=== PATIENT | female | born 1970 | race Caucasian/White ===

== ENCOUNTER 2019-02-26 13:40 | Emergency (ER) | payer MEDICARE, OTHER ==
[~2019-02-26] VITALS: Ht 162.6 cm; Wt 54.9 kg
--- NOTE | 2019-02-26 14:31 | NUR ---
Christiano CASTELLANOS PA AT BEDSIDE TO EVAL PT, PT C/O RT FLANKPAIN SINCE 199, HAS BEEN ON MACROBID FOR 3 WEEKS, FINISHED YESTERDAY, +N/V, VOMITED X2 TODAY, "LOW GRADE FEVER", PT IS RESTING QUIETLY ON GURNEY,
[2019-02-26] MEDS ORDERED: CefTRIAXone 2gm/D5W 50ml 50 ML IV ONE (14:35)
[2019-02-26] MEDS ORDERED: normal saline 1000ML IV soln IV ONE (14:35)
[2019-02-26] MEDS ORDERED: ondansetron/PF 4mg/2ml inj IV ONE ×2 (14:35→16:40)
[2019-02-26 14:42] LABS: BASOPHILS # (AUTO) 0.1 X10'3 (0-0.2); BASOPHILS % (AUTO) 0.5 % (0-1); EOSINOPHILS % (AUTO) 0.2 % (0-6); HEMATOCRIT 40.7 % (35.0-45.0); HEMOGLOBIN 13.7 g/dl (12.0-16.0); LYMPHOCYTES # (AUTO) 1.5 X10'3 (1.1-4.8); LYMPHOCYTES % (AUTO) 12.9 % (21-51); MEAN CORPUSCULAR HEMOGLOBIN 31.2 PG (27.0-31.0); MEAN CORPUSCULAR HGB CONC 33.7 g/dL (33.0-36.5); MEAN CORPUSCULAR VOLUME 92.5 FL (78-98); MEAN PLATELET VOLUME 7.7 FL (7.4-10.4); MONOCYTES # (AUTO) 0.5 X10'3 (0-0.9); MONOCYTES % (AUTO) 4.5 % (2-12); NEUTROPHILS # (AUTO) 9.6 X10'3 (1.8-7.7); NEUTROPHILS % (AUTO) 81.9 % (42-75); PLATELET COUNT 339 X10'3 (140-440); RED CELL DISTRIBUTION WIDTH 13.1 % (11.5-14.5); WHITE BLOOD COUNT 11.7 X10'3 (4.5-11.0)
--- NOTE | 2019-02-26 14:47 | NUR ---
lab at bedside for blood cx
[2019-02-26 14:52] LABS: ALANINE AMINOTRANSFERASE 15 U/L (12-78); ALBUMIN 3.9 G/DL (3.4-5.0); ALKALINE PHOSPHATASE 93 IU/L (46-116); ANION GAP 11 (8-16); ASPARTATE AMINO TRANSFERASE 15 U/L (10-37); BILIRUBIN,TOTAL 0.4 MG/DL (0.1-1.0); BLOOD UREA NITROGEN 18 MG/DL (7-18); BUN/CREATININE RATIO 12.5 (6.6-38.0); CALCIUM 9.4 MG/DL (8.5-10.1); CHLORIDE 103 MMOL/L (99-107); CREATININE 1.44 MG/DL (0.40-0.90); GLUCOSE 130 MG/DL (70-104); POTASSIUM 3.8 MMOL/L (3.5-5.1); SODIUM 139 MMOL/L (135-145); TOTAL CARBON DIOXIDE 25.1 MMOL/L (24-32); eGFR 39 ML/MIN
[2019-02-26 14:55] LABS: CLARITY,URINE CLEAR (Clear); COLOR,URINE YELLOW (Yellow); GLUCOSE, URINE NEGATIVE (Neg); KETONES,URINE NEGATIVE (Neg); LEUKOCYTE ESTERASE ,URINE NEGATIVE (Neg); NITRITES, URINE NEGATIVE (Neg); OCCULT BLOOD,URINE MODERATE (Neg); PH,URINE 7.5 (4.8-8.0); PROTEIN,URINE NEGATIVE (Neg); UROBILINOGEN,URINE 0.2 E.U/dL (0.2-1.0)
[2019-02-26] MEDS: morphine 4 MG/ML inj SYRINge IV PRN ×2 (14:57→16:41)
[2019-02-26 14:59] LABS: UA COLLECTION TYPE CLN CATCH MIDSTREAM
--- NOTE | 2019-02-26 15:01 | NUR ---
1ST LITER NS INFUSING W/O
[2019-02-26 15:08] LABS: AMORPHOUS PHOSPHATES 1+
[2019-02-26 15:09] LABS: BACTERIA,URINE FEW /HPF (Neg)
[2019-02-26 15:10] LABS: SQUAMOUS EPITHELIAL CELL,UR FEW /LPF (FEW)
[2019-02-26 15:15] LABS: WBC,URINE 0-4 /HPF (0-4)
[2019-02-26] MEDS ORDERED: ONDA4TAB6 PO (15:49)
[2019-02-26] MEDS ORDERED: HYDR-4383 PO (15:49)
[2019-02-26] MEDS ORDERED: NAPR-56 PO (15:49)
[2019-02-26 17:24] VITALS: BP 175/94
== END 2019-02-26 17:25 | disposition home or self-care (01) ==
LOC: ER 13:41
DX: R10.31 Right lower quadrant pain (principal); R10.11 Right upper quadrant pain; R31.9 Hematuria, unspecified; G35 Multiple sclerosis; E03.9 Hypothyroidism, unspecified; M79.7 Fibromyalgia; Z98.890 Other specified postprocedural states; Z88.5 Allergy status to narcotic agent; Z88.8 Allergy status to other drugs, medicaments and biological substances; Z79.899 Other long term (current) drug therapy
CPT/HCPCS: 36415; 74176; 80053; 81001; 83605; 84145; 85025; 87040; 96365; 96366; 96375; 99284; J0696; J2270; J2405; J7030

== ENCOUNTER 2019-06-04 12:53 | Inpatient (IN) | payer MEDICARE, MEDICAID ==
[~2019-06-04] VITALS: Ht 162.6 cm; Wt 53.0 kg
[~2019-06-04 12:53] MED LIST: HYDR-4383 PO; ONDA4TAB6 PO
[2019-06-04 13:55] LABS: CLARITY,URINE CLOUDY (Clear); COLOR,URINE YELLOW (Yellow); GLUCOSE, URINE NEGATIVE (Neg); KETONES,URINE NEGATIVE (Neg); LEUKOCYTE ESTERASE ,URINE TRACE (Neg); NITRITES, URINE POSITIVE (Neg); OCCULT BLOOD,URINE LARGE (Neg); PH,URINE 7.5 (4.8-8.0); PROTEIN,URINE NEGATIVE (Neg); UROBILINOGEN,URINE 0.2 E.U/dL (0.2-1.0)
[2019-06-04 13:59] LABS: UA COLLECTION TYPE CLN CATCH MIDSTREAM
[2019-06-04 14:03] LABS: BACTERIA,URINE FEW /HPF (Neg)
[2019-06-04 14:04] LABS: AMORPHOUS PHOSPHATES 3+; MUCUS STRANDS NONE SEEN /LPF (Neg); SQUAMOUS EPITHELIAL CELL,UR FEW /LPF (FEW)
[2019-06-04 14:04] LABS: BASOPHILS # (AUTO) 0.1 X10'3 (0-0.2); BASOPHILS % (AUTO) 0.4 % (0-1); EOSINOPHILS % (AUTO) 0.1 % (0-6); HEMATOCRIT 40.8 % (35.0-45.0); HEMOGLOBIN 13.9 g/dl (12.0-16.0); LYMPHOCYTES # (AUTO) 1.2 X10'3 (1.1-4.8); LYMPHOCYTES % (AUTO) 9.2 % (21-51); MEAN CORPUSCULAR HEMOGLOBIN 31.2 PG (27.0-31.0); MEAN CORPUSCULAR HGB CONC 34.2 g/dL (33.0-36.5); MEAN CORPUSCULAR VOLUME 91.3 FL (78-98); MEAN PLATELET VOLUME 7.6 FL (7.4-10.4); MONOCYTES # (AUTO) 0.5 X10'3 (0-0.9); MONOCYTES % (AUTO) 3.5 % (2-12); NEUTROPHILS # (AUTO) 11.4 X10'3 (1.8-7.7); NEUTROPHILS % (AUTO) 86.8 % (42-75); PLATELET COUNT 395 X10'3 (140-440); RED BLOOD COUNT 4.47 X10'6 (4.20-5.60); RED CELL DISTRIBUTION WIDTH 12.4 % (11.5-14.5); WHITE BLOOD COUNT 13.2 X10'3 (4.5-11.0)
[2019-06-04 14:15] LABS: ALANINE AMINOTRANSFERASE 16 U/L (12-78); ALBUMIN 4.2 G/DL (3.4-5.0); ALKALINE PHOSPHATASE 98 IU/L (46-116); AMYLASE 209 U/L (25-115); ANION GAP 10 (8-16); ASPARTATE AMINO TRANSFERASE 12 U/L (10-37); BILIRUBIN,TOTAL 0.3 MG/DL (0.1-1.0); BLOOD UREA NITROGEN 15 MG/DL (7-18); BUN/CREATININE RATIO 10.4 (6.6-38.0); CALCIUM 9.1 MG/DL (8.5-10.1); CHLORIDE 101 MMOL/L (99-107); CREATININE 1.44 MG/DL (0.40-0.90); GLUCOSE 115 MG/DL (70-104); LIPASE 997 U/L (73-393); POTASSIUM 3.9 MMOL/L (3.5-5.1); SODIUM 138 MMOL/L (135-145); TOTAL CARBON DIOXIDE 27.5 MMOL/L (24-32); TOTAL PROTEIN 8.4 G/DL (6.4-8.2); eGFR 39 ML/MIN
[2019-06-04] MEDS ORDERED: ondansetron/PF 4mg/2ml inj IV ONE (15:00)
[2019-06-04] MEDS ORDERED: pantoprazole 40 MG vial IV ONE (15:00)
[2019-06-04] MEDS ORDERED: normal saline 1000ML IV soln IVB ONE ×2 (15:00)
[2019-06-04] MEDS: morphine 2 MG/ML inj. syringe IV PRN ×2 (16:14→17:12)
[2019-06-04] MEDS ORDERED: LEVO100T9 PO (16:53)
[2019-06-04] MEDS ORDERED: NAPR-996 PO (16:55)
[2019-06-04] MEDS ORDERED: ACET-75 PO (16:55)
[2019-06-04] MEDS ORDERED: ondansetron/PF 4mg/2ml inj IV PRN (17:55)
[2019-06-04] MEDS ORDERED: magnesium 4gm in 100ml NS 100 ML IV PRN (17:55)
[2019-06-04] MEDS ORDERED: mag hydrox/Alum hydrox/simeth 30ml oral suspension PO PRN (17:55)
[2019-06-04] MEDS ORDERED: magnesium 2GM in 50ml NS 50 ML IV PRN (17:55)
[2019-06-04] MEDS ORDERED: acetaminophen 325mg tablet PO PRN (17:55)
[2019-06-04] MEDS ORDERED: magnesium Cl slow-release 64mg tablet PO PRN (17:55)
[2019-06-04] MEDS ORDERED: potassium CL 10mEq/100ml bag 100 ML IV PRN ×2 (17:55)
[2019-06-04] MEDS ORDERED: potassium Cl 20 mEq SR tablet PO PRN ×2 (17:55)
[2019-06-04] MEDS ORDERED: magnesium hydroxide 30ml (MOM) UD suspension PO PRN (17:55)
[2019-06-04] MEDS: normal saline 1000ml 1,000 ML IV SCH ×2 (19:08→22:54)
[2019-06-04] MEDS: K and/or MAG REPLACEMENT MC SCH (20:00)
[2019-06-04 20:30] VITALS: BP 153/91
[2019-06-04] MEDS: dronabinol 2.5mg capsule PO PRN (21:53)
[2019-06-04] MEDS: piperacillin/tazo 3.375gm/50ml 50 ML IV SCH (23:58)
[2019-06-05] VITALS: BP 150/89
[2019-06-05] MEDS: heparin, porcine 5000 units/ml vial SQ SCH ×2 (00:01→07:30)
[2019-06-05] MEDS: normal saline 1000ml 1,000 ML IV SCH ×2 (00:25→06:06)
[2019-06-05] MEDS ORDERED: morphine 2 MG/ML inj. syringe IV ONE (01:45)
[2019-06-05] MEDS: dronabinol 2.5mg capsule PO PRN ×2 (04:02→10:30)
[2019-06-05 05:18] LABS: BASOPHILS % (AUTO) 0.4 % (0-1); EOSINOPHILS % (AUTO) 0.4 % (0-6); HEMATOCRIT 34.5 % (35.0-45.0); HEMOGLOBIN 11.8 g/dl (12.0-16.0); LYMPHOCYTES # (AUTO) 1.9 X10'3 (1.1-4.8); LYMPHOCYTES % (AUTO) 20.1 % (21-51); MEAN CORPUSCULAR HEMOGLOBIN 31.4 PG (27.0-31.0); MEAN CORPUSCULAR HGB CONC 34.3 g/dL (33.0-36.5); MEAN CORPUSCULAR VOLUME 91.6 FL (78-98); MEAN PLATELET VOLUME 7.8 FL (7.4-10.4); MONOCYTES # (AUTO) 0.7 X10'3 (0-0.9); MONOCYTES % (AUTO) 7.8 % (2-12); NEUTROPHILS # (AUTO) 6.8 X10'3 (1.8-7.7); NEUTROPHILS % (AUTO) 71.3 % (42-75); PLATELET COUNT 282 X10'3 (140-440); RED BLOOD COUNT 3.77 X10'6 (4.20-5.60); RED CELL DISTRIBUTION WIDTH 12.4 % (11.5-14.5); WHITE BLOOD COUNT 9.5 X10'3 (4.5-11.0)
[2019-06-05 05:43] LABS: ALANINE AMINOTRANSFERASE 13 U/L (12-78); ALBUMIN 3.4 G/DL (3.4-5.0); ALKALINE PHOSPHATASE 76 IU/L (46-116); ANION GAP 13 (8-16); ASPARTATE AMINO TRANSFERASE 12 U/L (10-37); BILIRUBIN,TOTAL 0.4 MG/DL (0.1-1.0); BLOOD UREA NITROGEN 11 MG/DL (7-18); BUN/CREATININE RATIO 7.7 (6.6-38.0); CALCIUM 8.1 MG/DL (8.5-10.1); CHLORIDE 105 MMOL/L (99-107); CHOL/HDL RATIO 4.3 (0.00-4.99); CHOLESTEROL 162 MG/DL (0-200); CREATININE 1.43 MG/DL (0.40-0.90); GLUCOSE 106 MG/DL (70-104); HDL CHOLESTEROL 38 MG/DL (35-60); LDL CHOLESTEROL 105 MG/DL (50-100); LIPASE 154 U/L (73-393); MAGNESIUM 1.7 MG/DL (1.5-2.4); POTASSIUM 3.7 MMOL/L (3.5-5.1); SODIUM 139 MMOL/L (135-145); TOTAL CARBON DIOXIDE 21.2 MMOL/L (24-32); TOTAL PROTEIN 6.8 G/DL (6.4-8.2); TRIGLYCERIDES 127 MG/DL (20-135); eGFR 39 ML/MIN
--- NOTE | 2019-06-05 07:14 | NUR ---
Patient in room [facility]. I have received report from TIGRE Murphy and had the opportunity to ask questions and assume patient care.
[2019-06-05] MEDS: piperacillin/tazo 3.375gm/50ml 50 ML IV SCH (07:30)
[2019-06-05 08:00] VITALS: BP 152/84
[2019-06-05] MEDS ORDERED: levoTHYROXINE 100mcg tablet PO SCH (08:00)
[2019-06-05] MEDS: K and/or MAG REPLACEMENT MC SCH (08:00)
[2019-06-05] MEDS ORDERED: AMOX-580 PO (10:07)
[2019-06-05] MEDS ORDERED: ONDA4TAB6 PO (10:23)
[2019-06-05 11:00] VITALS: BP 158/87
--- NOTE | 2019-06-05 12:03 | NUR ---
pt. discharged from facility at 1155. pt. was wheeled down to private car accompanied by staff and family. pt. understood and signed all paperwork. pt. IV was d/c intact. pt. understands to make f/u appointments and has the phone number for Dr. Cardenas. pt. left with all belongings. Addendum: 06/05/19 at 1822 by Teresa Krueger RN new meds called into [facility] [address]
== END 2019-06-05 12:33 | disposition home or self-care (01) | DRG 439 ==
LOC: ER 12:54 → ED HOLD 18:11 → SUR 3N 20:15
PROVIDERS: ADMIT Family Medicine; ATTEND Family Medicine
DX: K85.90 Acute pancreatitis without necrosis or infection, unspecified (principal); N13.30 Unspecified hydronephrosis; G35 Multiple sclerosis; E06.3 Autoimmune thyroiditis; F12.90 Cannabis use, unspecified, uncomplicated; E86.0 Dehydration; M79.7 Fibromyalgia; N18.3 Chronic kidney disease, stage 3 (moderate); Z85.850 Personal history of malignant neoplasm of thyroid; Z90.5 Acquired absence of kidney; Z88.8 Allergy status to other drugs, medicaments and biological substances; Z79.899 Other long term (current) drug therapy; Z82.49 Family history of ischemic heart disease and other diseases of the circulatory system; Z83.3 Family history of diabetes mellitus
CPT/HCPCS: 36415; 74176; 76700; 80053; 80061; 81001; 82150; 83605; 83690; 83735; 85025; 87040; 87077; 87081; 87088; 87186; 96374; 96375; 99285; C9113; G0378; J1644; J2270; J2405; J2543; J7030; Q0167

== ENCOUNTER 2019-08-18 13:13 | Emergency (ER) | payer MEDICARE, MEDICAID ==
[~2019-08-18] VITALS: Ht 162.6 cm; Wt 51.2 kg
[~2019-08-18 13:13] MED LIST changes: +ACET-75 PO; -HYDR-4383 PO; +LEVO100T9 PO
--- NOTE | 2019-08-18 13:42 | NUR ---
Called no in lobby [phone]
[2019-08-18 16:45] LABS: BASOPHILS % (AUTO) 0.4 % (0-1); EOSINOPHILS % (AUTO) 0.1 % (0-6); HEMATOCRIT 42.2 % (35.0-45.0); HEMOGLOBIN 14.8 g/dl (12.0-16.0); LYMPHOCYTES # (AUTO) 1.2 X10'3 (1.1-4.8); MEAN CORPUSCULAR HEMOGLOBIN 31.2 PG (27.0-31.0); MEAN CORPUSCULAR HGB CONC 35.1 g/dL (33.0-36.5); MEAN CORPUSCULAR VOLUME 88.9 FL (78-98); MEAN PLATELET VOLUME 7.9 FL (7.4-10.4); MONOCYTES # (AUTO) 0.3 X10'3 (0-0.9); MONOCYTES % (AUTO) 2.9 % (2-12); NEUTROPHILS # (AUTO) 9.3 X10'3 (1.8-7.7); NEUTROPHILS % (AUTO) 85.6 % (42-75); PLATELET COUNT 395 X10'3 (140-440); RED BLOOD COUNT 4.74 X10'6 (4.20-5.60); RED CELL DISTRIBUTION WIDTH 12.4 % (11.5-14.5); WHITE BLOOD COUNT 10.9 X10'3 (4.5-11.0)
[2019-08-18] MEDS ORDERED: normal saline 1000ml 1,000 ML IV ONE (16:45)
[2019-08-18] MEDS ORDERED: morphine 4 MG/ML inj SYRINge IV ONE (16:45)
[2019-08-18] MEDS ORDERED: ondansetron/PF 4mg/2ml inj IV ONE (16:45)
[2019-08-18 17:00] LABS: ALANINE AMINOTRANSFERASE 14 U/L (12-78); ALBUMIN 4.4 G/DL (3.4-5.0); ALBUMIN/GLOBULIN RATIO 0.8 (1.1-1.5); ALKALINE PHOSPHATASE 102 IU/L (46-116); ANION GAP 14 (8-16); ASPARTATE AMINO TRANSFERASE 22 U/L (10-37); BILIRUBIN,TOTAL 0.4 MG/DL (0.1-1.0); BLOOD UREA NITROGEN 15 MG/DL (7-18); BUN/CREATININE RATIO 9.8 (6.6-38.0); CALCIUM 10.1 MG/DL (8.5-10.1); CHLORIDE 100 MMOL/L (99-107); CREATININE 1.53 MG/DL (0.40-0.90); GLUCOSE 116 MG/DL (70-104); LIPASE 95 U/L (73-393); POTASSIUM 3.8 MMOL/L (3.5-5.1); SODIUM 140 MMOL/L (135-145); TOTAL CARBON DIOXIDE 26.1 MMOL/L (24-32); TOTAL PROTEIN 9.6 G/DL (6.4-8.2); eGFR 36 ML/MIN
[2019-08-18] MEDS ORDERED: bisacodyl 5mg tablet.DR PO ONE (17:15)
[2019-08-18] MEDS ORDERED: BISA-155 PO (17:15)
[2019-08-18] MEDS ORDERED: MAGN296S68 PO (17:15)
[2019-08-18] MEDS ORDERED: ONDA8TAB6 PO (17:21)
[2019-08-18 18:02] VITALS: BP 148/71
== END 2019-08-18 18:04 | disposition home or self-care (01) ==
LOC: ER 13:14
DX: K59.00 Constipation, unspecified (principal); G35 Multiple sclerosis; M79.7 Fibromyalgia; F12.90 Cannabis use, unspecified, uncomplicated; R11.10 Vomiting, unspecified; Z98.890 Other specified postprocedural states; Z72.89 Other problems related to lifestyle; Z88.8 Allergy status to other drugs, medicaments and biological substances; Z79.899 Other long term (current) drug therapy
CPT/HCPCS: 36415; 80053; 83690; 85025; 96361; 96374; 96375; 99284; J2270; J2405; J7030

== ENCOUNTER 2020-02-24 23:28 | Emergency (ER) | payer MEDICARE, MEDICAID ==
[~2020-02-24] VITALS: Ht 162.6 cm; Wt 50.0 kg
[~2020-02-24 23:28] MED LIST changes: +BISA-155 PO; +MAGN296S68 PO; +ONDA8TAB6 PO
[2020-02-24] MEDS ORDERED: normal saline 1000ml 1,000 ML IV ONE (23:50)
[2020-02-24] MEDS ORDERED: ondansetron/PF 4mg/2ml inj IV ONE (23:50)
[2020-02-24] MEDS ORDERED: morphine 4 MG/ML inj SYRINge IV ONE (23:50)
[2020-02-25] LABS: BASOPHILS # (AUTO) 0.1 X10'3 (0-0.2); BASOPHILS % (AUTO) 0.5 % (0-1); EOSINOPHILS # (AUTO) 0.1 X10'3 (0-0.9); EOSINOPHILS % (AUTO) 0.4 % (0-6); HEMATOCRIT 39.9 % (35.0-45.0); HEMOGLOBIN 13.8 g/dl (12.0-16.0); LYMPHOCYTES # (AUTO) 1.7 X10'3 (1.1-4.8); LYMPHOCYTES % (AUTO) 9.8 % (21-51); MEAN CORPUSCULAR HEMOGLOBIN 31.2 PG (27.0-31.0); MEAN CORPUSCULAR HGB CONC 34.6 g/dL (33.0-36.5); MEAN PLATELET VOLUME 7.6 FL (7.4-10.4); MONOCYTES # (AUTO) 0.9 X10'3 (0-0.9); MONOCYTES % (AUTO) 5.3 % (2-12); NEUTROPHILS # (AUTO) 14.3 X10'3 (1.8-7.7); PLATELET COUNT 363 X10'3 (140-440); RED BLOOD COUNT 4.44 X10'6 (4.20-5.60)
[2020-02-25 00:33] LABS: ALANINE AMINOTRANSFERASE 16 U/L (12-78); ALBUMIN 3.6 G/DL (3.4-5.0); ALBUMIN/GLOBULIN RATIO 0.9 (1.1-1.5); ALKALINE PHOSPHATASE 107 IU/L (46-116); ANION GAP 11 (8-16); ASPARTATE AMINO TRANSFERASE 17 U/L (10-37); BILIRUBIN,TOTAL 0.3 MG/DL (0.1-1.0); BLOOD UREA NITROGEN 15 MG/DL (7-18); BUN/CREATININE RATIO 10.9 (6.6-38.0); CALCIUM 8.9 MG/DL (8.5-10.1); CHLORIDE 101 MMOL/L (99-107); CREATININE 1.37 MG/DL (0.40-0.90); GLUCOSE 125 MG/DL (70-104); POTASSIUM 3.4 MMOL/L (3.5-5.1); SODIUM 136 MMOL/L (135-145); TOTAL CARBON DIOXIDE 23.8 MMOL/L (24-32); TOTAL PROTEIN 7.8 G/DL (6.4-8.2); eGFR 41 ML/MIN
[2020-02-25 00:36] LABS: LIPASE 147 U/L (73-393); TROPONIN I < 0.04 NG/ML (0.0-0.05)
[2020-02-25 01:34] LABS: CLARITY,URINE CLEAR (Clear); COLOR,URINE STRAW (Yellow); GLUCOSE, URINE NEGATIVE (Neg); KETONES,URINE NEGATIVE (Neg); LEUKOCYTE ESTERASE ,URINE TRACE (Neg); NITRITES, URINE NEGATIVE (Neg); OCCULT BLOOD,URINE MODERATE (Neg); PH,URINE 7.5 (4.8-8.0); PROTEIN,URINE NEGATIVE (Neg); URINE HCG NEGATIVE (NEG); UROBILINOGEN,URINE 0.2 E.U/dL (0.2-1.0)
[2020-02-25 01:36] VITALS: BP 180/101
[2020-02-25 01:41] LABS: UA COLLECTION TYPE CLN CATCH MIDSTREAM
[2020-02-25 01:45] LABS: BACTERIA,URINE FEW /HPF (Neg); MUCUS STRANDS NONE SEEN /LPF (Neg); SQUAMOUS EPITHELIAL CELL,UR FEW /LPF (FEW); WBC,URINE 0-4 /HPF (0-4)
== END 2020-02-25 03:15 | disposition home or self-care (01) ==
LOC: ER 23:30
DX: N20.0 Calculus of kidney (principal); R11.2 Nausea with vomiting, unspecified; F12.90 Cannabis use, unspecified, uncomplicated; M79.7 Fibromyalgia; G35 Multiple sclerosis; Z90.89 Acquired absence of other organs; Z88.8 Allergy status to other drugs, medicaments and biological substances; Z79.899 Other long term (current) drug therapy
CPT/HCPCS: 36415; 74176; 80053; 81001; 81025; 83690; 84484; 85025; 87088; 96361; 96374; 96375; 99284; J2270; J2405; J7030

== ENCOUNTER 2020-04-17 04:19 | Emergency (ER) | payer MEDICARE, MEDICAID ==
[~2020-04-17] VITALS: Ht 162.6 cm; Wt 51.0 kg
[2020-04-17] MEDS ORDERED: ondansetron/PF 4mg/2ml inj IV ONE (04:30)
[2020-04-17] MEDS ORDERED: ketorolac tromethamine 15mg/ml inj. IV ONE ×2 (04:30→04:50)
[2020-04-17] MEDS ORDERED: diazepam inj 5 MG/ML inj. IV ONE (04:35)
[2020-04-17] MEDS ORDERED: oxybutynin 5mg tablet PO ONE (04:40)
[2020-04-17] MEDS ORDERED: tamsulosin 0.4mg capsule PO ONE (04:40)
[2020-04-17] MEDS ORDERED: tamsulosin 0.4mg capsule PO SCH (04:40)
[2020-04-17] MEDS ORDERED: oxybutynin 5mg tablet PO SCH (04:40)
[2020-04-17] MEDS ORDERED: morphine 4 MG/ML inj SYRINge IV ONE (05:05)
[2020-04-17] MEDS ORDERED: NORT10CA81 PO (05:07)
[2020-04-17 05:11] LABS: ALANINE AMINOTRANSFERASE 23 U/L (12-78); ALBUMIN 3.8 G/DL (3.4-5.0); ALBUMIN/GLOBULIN RATIO 0.9 (1.1-1.5); ALKALINE PHOSPHATASE 118 IU/L (46-116); ANION GAP 14 (8-16); ASPARTATE AMINO TRANSFERASE 20 U/L (10-37); BILIRUBIN,TOTAL 0.3 MG/DL (0.1-1.0); BLOOD UREA NITROGEN 15 MG/DL (7-18); BUN/CREATININE RATIO 13.2 (6.6-38.0); CHLORIDE 100 MMOL/L (99-107); CREATININE 1.14 MG/DL (0.40-0.90); GLUCOSE 122 MG/DL (70-104); LIPASE 144 U/L (73-393); POTASSIUM 3.2 MMOL/L (3.5-5.1); SODIUM 139 MMOL/L (135-145); TOTAL CARBON DIOXIDE 24.8 MMOL/L (24-32); TOTAL PROTEIN 8.2 G/DL (6.4-8.2); eGFR 50 ML/MIN
[2020-04-17 05:25] LABS: BASOPHILS % (AUTO) 0.3 % (0-1); EOSINOPHILS # (AUTO) 0.1 X10'3 (0-0.9); EOSINOPHILS % (AUTO) 0.8 % (0-6); HEMATOCRIT 39.3 % (35.0-45.0); HEMOGLOBIN 13.2 g/dl (12.0-16.0); LYMPHOCYTES # (AUTO) 1.6 X10'3 (1.1-4.8); LYMPHOCYTES % (AUTO) 10.9 % (21-51); MEAN CORPUSCULAR HEMOGLOBIN 30.7 PG (27.0-31.0); MEAN CORPUSCULAR HGB CONC 33.7 g/dL (33.0-36.5); MEAN CORPUSCULAR VOLUME 91.2 FL (78-98); MEAN PLATELET VOLUME 7.7 FL (7.4-10.4); MONOCYTES # (AUTO) 0.8 X10'3 (0-0.9); MONOCYTES % (AUTO) 5.2 % (2-12); NEUTROPHILS # (AUTO) 12.1 X10'3 (1.8-7.7); NEUTROPHILS % (AUTO) 82.8 % (42-75); PLATELET COUNT 406 X10'3 (140-440); RED BLOOD COUNT 4.31 X10'6 (4.20-5.60); RED CELL DISTRIBUTION WIDTH 12.8 % (11.5-14.5); WHITE BLOOD COUNT 14.7 X10'3 (4.5-11.0)
--- NOTE | 2020-04-17 05:27 | NUR ---
PATIENT REPORTS PAIN STARTING TO GO DOWN, REPOSITIONED FOR COMFORT
[2020-04-17] MEDS ORDERED: ONDA4TAB6 PO (05:54)
[2020-04-17] MEDS ORDERED: FLO0.4C PO (05:54)
[2020-04-17] MEDS ORDERED: DIAZ5TAB PO (05:54)
[2020-04-17] MEDS ORDERED: OXYB5TAB16 PO (05:54)
[2020-04-17] MEDS ORDERED: KETO10TA2 PO (05:54)
[2020-04-17 06:54] LABS: CLARITY,URINE CLEAR (Clear); COLOR,URINE YELLOW (Yellow); GLUCOSE, URINE NEGATIVE (Neg); KETONES,URINE NEGATIVE (Neg); LEUKOCYTE ESTERASE ,URINE NEGATIVE (Neg); NITRITES, URINE NEGATIVE (Neg); OCCULT BLOOD,URINE MODERATE (Neg); PH,URINE 6.5 (4.8-8.0); PROTEIN,URINE NEGATIVE (Neg); URINE HCG NEGATIVE (NEG); UROBILINOGEN,URINE 0.2 E.U/dL (0.2-1.0)
[2020-04-17 06:59] LABS: BACTERIA,URINE NONE SEEN /HPF (Neg); MUCUS STRANDS FEW /LPF (Neg); SQUAMOUS EPITHELIAL CELL,UR FEW /LPF (FEW); UA COLLECTION TYPE CLN CATCH MIDSTREAM; WBC,URINE 0-4 /HPF (0-4)
[2020-04-17 07:49] VITALS: BP 126/87
== END 2020-04-17 07:57 | disposition home or self-care (01) ==
LOC: ER 04:19
DX: N13.30 Unspecified hydronephrosis (principal); N23 Unspecified renal colic; G35 Multiple sclerosis; R10.9 Unspecified abdominal pain; F12.90 Cannabis use, unspecified, uncomplicated; R11.10 Vomiting, unspecified; Z72.89 Other problems related to lifestyle; Z98.890 Other specified postprocedural states; Z88.8 Allergy status to other drugs, medicaments and biological substances; Z79.899 Other long term (current) drug therapy
CPT/HCPCS: 36415; 80053; 81001; 81025; 83690; 84443; 85025; 96374; 96375; 99284; J1885; J2270; J2405; J3360

== ENCOUNTER 2020-06-05 14:21 | Emergency (ER) | payer MEDICARE, MEDICAID ==
[~2020-06-05] VITALS: Ht 162.6 cm; Wt 49.6 kg
[~2020-06-05 14:21] MED LIST changes: -ACET-75 PO; +DIAZ5TAB PO; +KETO10TA2 PO; -MAGN296S68 PO; +NORT10CA81 PO; -ONDA8TAB6 PO; +OXYB5TAB16 PO
[2020-06-05] MEDS ORDERED: tamsulosin 0.4mg capsule PO STA (17:37)
[2020-06-05] MEDS ORDERED: ondansetron/PF 4mg/2ml inj IV ONE (17:40)
[2020-06-05] MEDS ORDERED: ketorolac tromethamine 15mg/ml inj. IV ONE (17:40)
[2020-06-05 17:41] LABS: CLARITY,URINE CLEAR (Clear); COLOR,URINE YELLOW (Yellow); GLUCOSE, URINE NEGATIVE (Neg); KETONES,URINE NEGATIVE (Neg); LEUKOCYTE ESTERASE ,URINE TRACE (Neg); NITRITES, URINE NEGATIVE (Neg); OCCULT BLOOD,URINE LARGE (Neg); PH,URINE 6.5 (4.8-8.0); PROTEIN,URINE NEGATIVE (Neg); UROBILINOGEN,URINE 0.2 E.U/dL (0.2-1.0)
[2020-06-05 17:45] LABS: BACTERIA,URINE FEW /HPF (Neg); MUCUS STRANDS FEW /LPF (Neg); SQUAMOUS EPITHELIAL CELL,UR MODERATE /LPF (FEW); UA COLLECTION TYPE CLN CATCH MIDSTREAM; WBC,URINE 0-4 /HPF (0-4)
[2020-06-05 17:57] LABS: BASOPHILS # (AUTO) 0.1 X10'3 (0-0.2); BASOPHILS % (AUTO) 1.3 % (0-1); EOSINOPHILS % (AUTO) 0.1 % (0-6); HEMATOCRIT 40.5 % (35.0-45.0); LYMPHOCYTES # (AUTO) 1.8 X10'3 (1.1-4.8); LYMPHOCYTES % (AUTO) 16.5 % (21-51); MEAN CORPUSCULAR HEMOGLOBIN 31.5 PG (27.0-31.0); MEAN CORPUSCULAR HGB CONC 34.4 g/dL (33.0-36.5); MEAN CORPUSCULAR VOLUME 91.4 FL (78-98); MEAN PLATELET VOLUME 7.6 FL (7.4-10.4); MONOCYTES # (AUTO) 0.6 X10'3 (0-0.9); MONOCYTES % (AUTO) 5.5 % (2-12); NEUTROPHILS # (AUTO) 8.6 X10'3 (1.8-7.7); NEUTROPHILS % (AUTO) 76.6 % (42-75); PLATELET COUNT 366 X10'3 (140-440); RED BLOOD COUNT 4.43 X10'6 (4.20-5.60); RED CELL DISTRIBUTION WIDTH 12.6 % (11.5-14.5); WHITE BLOOD COUNT 11.2 X10'3 (4.5-11.0)
[2020-06-05 18:11] LABS: ALANINE AMINOTRANSFERASE 17 U/L (12-78); ALBUMIN 3.8 G/DL (3.4-5.0); ALBUMIN/GLOBULIN RATIO 0.8 (1.1-1.5); ALKALINE PHOSPHATASE 119 IU/L (46-116); ANION GAP 8 (8-16); ASPARTATE AMINO TRANSFERASE 14 U/L (10-37); BILIRUBIN,TOTAL 0.3 MG/DL (0.1-1.0); BLOOD UREA NITROGEN 11 MG/DL (7-18); BUN/CREATININE RATIO 7.1 (6.6-38.0); CALCIUM 9.2 MG/DL (8.5-10.1); CHLORIDE 99 MMOL/L (99-107); CREATININE 1.55 MG/DL (0.40-0.90); GLUCOSE 116 MG/DL (70-104); LIPASE 63 U/L (73-393); POTASSIUM 3.7 MMOL/L (3.5-5.1); SODIUM 133 MMOL/L (135-145); TOTAL CARBON DIOXIDE 26.4 MMOL/L (24-32); TOTAL PROTEIN 8.5 G/DL (6.4-8.2); eGFR 35 ML/MIN
[2020-06-05] MEDS ORDERED: KETO10TA2 PO (18:37)
[2020-06-05 18:41] VITALS: BP 170/92
[2020-06-05] MEDS ORDERED: oxybutynin 5mg tablet PO SCH (21:00)
== END 2020-06-05 18:43 | disposition home or self-care (01) ==
LOC: ER 14:21
DX: N13.30 Unspecified hydronephrosis (principal); N18.30 Chronic kidney disease, stage 3 unspecified; E07.9 Disorder of thyroid, unspecified; M79.7 Fibromyalgia; F12.90 Cannabis use, unspecified, uncomplicated; Z72.89 Other problems related to lifestyle; Z88.8 Allergy status to other drugs, medicaments and biological substances; Z79.899 Other long term (current) drug therapy
CPT/HCPCS: 36415; 80053; 81001; 83690; 85025; 96374; 96375; 99284; J1885; J2405

== ENCOUNTER 2020-08-06 18:28 | Emergency (ER) | payer MEDICARE, MEDICAID ==
[~2020-08-06] VITALS: Ht 162.6 cm; Wt 52.3 kg
[2020-08-06] MEDS ORDERED: ketorolac tromethamine 15mg/ml inj. IM ONE (20:40)
[2020-08-06 21:05] VITALS: BP 157/91
--- NOTE | 2020-08-06 21:10 | NUR ---
U/S CALLED BACK AT [address]
[2020-08-06 21:15] LABS: BASOPHILS % (AUTO) 0.4 % (0-1); EOSINOPHILS % (AUTO) 0.1 % (0-6); HEMATOCRIT 43.3 % (35.0-45.0); HEMOGLOBIN 14.4 g/dl (12.0-16.0); LYMPHOCYTES # (AUTO) 1.4 X10'3 (1.1-4.8); LYMPHOCYTES % (AUTO) 12.2 % (21-51); MEAN CORPUSCULAR HGB CONC 33.2 g/dL (33.0-36.5); MEAN CORPUSCULAR VOLUME 90.4 FL (78-98); MEAN PLATELET VOLUME 7.8 FL (7.4-10.4); MONOCYTES # (AUTO) 0.4 X10'3 (0-0.9); MONOCYTES % (AUTO) 3.6 % (2-12); NEUTROPHILS # (AUTO) 9.7 X10'3 (1.8-7.7); NEUTROPHILS % (AUTO) 83.7 % (42-75); PLATELET COUNT 416 X10'3 (140-440); RED BLOOD COUNT 4.79 X10'6 (4.20-5.60); RED CELL DISTRIBUTION WIDTH 12.8 % (11.5-14.5); WHITE BLOOD COUNT 11.6 X10'3 (4.5-11.0)
[2020-08-06 21:18] LABS: ALANINE AMINOTRANSFERASE 17 U/L (12-78); ALBUMIN 4.3 G/DL (3.4-5.0); ALBUMIN/GLOBULIN RATIO 0.9 (1.1-1.5); ALKALINE PHOSPHATASE 122 IU/L (46-116); ANION GAP 12 (8-16); ASPARTATE AMINO TRANSFERASE 15 U/L (10-37); BILIRUBIN,TOTAL 0.4 MG/DL (0.1-1.0); BLOOD UREA NITROGEN 11 MG/DL (7-18); BUN/CREATININE RATIO 6.5 (6.6-38.0); CALCIUM 9.6 MG/DL (8.5-10.1); CHLORIDE 101 MMOL/L (99-107); GLUCOSE 118 MG/DL (70-104); POTASSIUM 3.7 MMOL/L (3.5-5.1); SODIUM 138 MMOL/L (135-145); TOTAL CARBON DIOXIDE 25.1 MMOL/L (24-32); TOTAL PROTEIN 9.1 G/DL (6.4-8.2); eGFR 32 ML/MIN
[2020-08-06 21:26] LABS: CLARITY,URINE CLEAR (Clear); COLOR,URINE YELLOW (Yellow); GLUCOSE, URINE NEGATIVE (Neg); KETONES,URINE NEGATIVE (Neg); LEUKOCYTE ESTERASE ,URINE NEGATIVE (Neg); NITRITES, URINE NEGATIVE (Neg); OCCULT BLOOD,URINE MODERATE (Neg); PROTEIN,URINE NEGATIVE (Neg); UROBILINOGEN,URINE 0.2 E.U/dL (0.2-1.0)
[2020-08-06 21:33] LABS: UA COLLECTION TYPE VOIDED
[2020-08-06 21:38] LABS: BACTERIA,URINE NONE SEEN /HPF (Neg); MUCUS STRANDS FEW /LPF (Neg); SQUAMOUS EPITHELIAL CELL,UR FEW /LPF (FEW); WBC,URINE 0-4 /HPF (0-4)
--- NOTE | 2020-08-06 22:19 | NUR ---
PT VOIDED WITHOUT DIFFICULTY.
== END 2020-08-06 22:33 | disposition home or self-care (01) ==
LOC: ER 18:28
DX: N13.30 Unspecified hydronephrosis (principal); R10.84 Generalized abdominal pain; M54.5 Low back pain; R11.0 Nausea; E86.0 Dehydration; F12.90 Cannabis use, unspecified, uncomplicated; Z87.440 Personal history of urinary (tract) infections; Z98.890 Other specified postprocedural states; Z72.89 Other problems related to lifestyle; Z88.8 Allergy status to other drugs, medicaments and biological substances; Z79.899 Other long term (current) drug therapy
CPT/HCPCS: 36415; 76700; 80053; 81001; 85025; 96372; 99284; J1885

== ENCOUNTER 2020-09-30 09:22 | Emergency (ER) | payer MEDICARE, MEDICAID ==
[~2020-09-30] VITALS: Ht 162.6 cm; Wt 52.3 kg
[2020-09-30 10:15] LABS: BASOPHILS % (AUTO) 0.3 % (0-1); EOSINOPHILS % (AUTO) 0.1 % (0-6); HEMATOCRIT 40.9 % (35.0-45.0); HEMOGLOBIN 14.1 g/dl (12.0-16.0); LYMPHOCYTES # (AUTO) 1.2 X10'3 (1.1-4.8); LYMPHOCYTES % (AUTO) 8.1 % (21-51); MEAN CORPUSCULAR HEMOGLOBIN 30.8 PG (27.0-31.0); MEAN CORPUSCULAR HGB CONC 34.4 g/dL (33.0-36.5); MEAN CORPUSCULAR VOLUME 89.5 FL (78-98); MEAN PLATELET VOLUME 7.5 FL (7.4-10.4); MONOCYTES # (AUTO) 0.4 X10'3 (0-0.9); NEUTROPHILS # (AUTO) 12.6 X10'3 (1.8-7.7); NEUTROPHILS % (AUTO) 88.5 % (42-75); PLATELET COUNT 484 X10'3 (140-440); RED BLOOD COUNT 4.57 X10'6 (4.20-5.60); RED CELL DISTRIBUTION WIDTH 13.2 % (11.5-14.5); WHITE BLOOD COUNT 14.3 X10'3 (4.5-11.0)
[2020-09-30 10:29] LABS: ALANINE AMINOTRANSFERASE 16 U/L (12-78); ALBUMIN 4.1 G/DL (3.4-5.0); ALBUMIN/GLOBULIN RATIO 0.8 (1.1-1.5); ALKALINE PHOSPHATASE 105 IU/L (46-116); ANION GAP 13 (8-16); ASPARTATE AMINO TRANSFERASE 15 U/L (10-37); BILIRUBIN,TOTAL 0.3 MG/DL (0.1-1.0); BLOOD UREA NITROGEN 13 MG/DL (7-18); BUN/CREATININE RATIO 9.3 (6.6-38.0); CALCIUM 9.7 MG/DL (8.5-10.1); CHLORIDE 101 MMOL/L (99-107); GLUCOSE 114 MG/DL (70-104); POTASSIUM 3.8 MMOL/L (3.5-5.1); SODIUM 140 MMOL/L (135-145); TOTAL CARBON DIOXIDE 25.7 MMOL/L (24-32); eGFR 40 ML/MIN
[2020-09-30] MEDS ORDERED: ketorolac trometh. 30mg/ml inj. IM ONE (11:30)
[2020-09-30] MEDS ORDERED: ondansetron 4mg rapidly disintigrating tab PO ONE (11:30)
[2020-09-30] MEDS ORDERED: tamsulosin 0.4mg capsule PO STA (11:49)
[2020-09-30] MEDS ORDERED: ONDA4TAB12 PO (11:51)
[2020-09-30] MEDS ORDERED: FLO0.4C PO (11:51)
[2020-09-30 12:39] LABS: CLARITY,URINE CLEAR (Clear); COLOR,URINE YELLOW (Yellow); GLUCOSE, URINE NEGATIVE (Neg); KETONES,URINE NEGATIVE (Neg); LEUKOCYTE ESTERASE ,URINE NEGATIVE (Neg); NITRITES, URINE NEGATIVE (Neg); OCCULT BLOOD,URINE MODERATE (Neg); PH,URINE 7.5 (4.8-8.0); PROTEIN,URINE 30 mg/dl (Neg); UROBILINOGEN,URINE 0.2 E.U/dL (0.2-1.0)
[2020-09-30 12:40] LABS: UA COLLECTION TYPE STRAIGHT CATH
[2020-09-30 12:58] LABS: BACTERIA,URINE FEW /HPF (Neg); MUCUS STRANDS NONE SEEN /LPF (Neg); SQUAMOUS EPITHELIAL CELL,UR FEW /LPF (FEW); WBC,URINE 0-4 /HPF (0-4)
[2020-09-30 13:25] VITALS: BP 161/98
== END 2020-09-30 13:26 | disposition home or self-care (01) ==
LOC: ER 09:23
DX: N13.30 Unspecified hydronephrosis (principal); R10.84 Generalized abdominal pain; R11.0 Nausea; F12.90 Cannabis use, unspecified, uncomplicated; Z87.440 Personal history of urinary (tract) infections; Z98.890 Other specified postprocedural states; Z72.89 Other problems related to lifestyle; Z88.8 Allergy status to other drugs, medicaments and biological substances; Z79.899 Other long term (current) drug therapy
CPT/HCPCS: 36415; 80053; 81001; 84145; 85025; 96372; 99283; J1885